=== PATIENT | male | born 1945 | race Caucasian/White ===

== ENCOUNTER 2018-07-08 07:47 | Day surgery (SDC) | payer MEDICARE, OTHER ==
[2018-07-08] VITALS (13 sets, daily range): BP systolic 102–143; BP diastolic 64–85
[~2018-07-08] VITALS: Ht 190.5 cm; Wt 112.4 kg
[2018-07-08] MEDS ORDERED: nitroGLYCERIN 0.4mg SUBLingual tab SL PRN (08:20)
[2018-07-08] MEDS ORDERED: LORazepam 0.5 MG tablet PO PRN (08:20)
[2018-07-08] MEDS ORDERED: normal saline 1000ml 1,000 ML IV SCH (08:20)
[2018-07-08] MEDS ORDERED: diphenhydrAMINE 25mg capsule PO PRN (08:20)
[2018-07-08] MEDS ORDERED: GLIM1TAB46 PO (08:30)
[2018-07-08] MEDS ORDERED: HYDR25TA4 PO (08:30)
[2018-07-08] MEDS ORDERED: LOSA50TA21 PO (08:30)
[2018-07-08] MEDS ORDERED: ATOR20TA PO (08:30)
[2018-07-08] MEDS ORDERED: AMLO-54 PO (08:30)
[2018-07-08] MEDS ORDERED: METF-437 PO (08:30)
[2018-07-08] MEDS ORDERED: ATEN50TA PO (08:30)
[2018-07-08] MEDS ORDERED: CALC-729 PO (08:30)
[2018-07-08] MEDS ORDERED: FINA5TAB11 PO (08:30)
[2018-07-08] MEDS ORDERED: iohexol 350MG/ML 100ml bottle IV ONE (08:58)
[2018-07-08] MEDS ORDERED: LIDOcaine 1% (10mg/ml)w/preservative injection 20ml MDV ONE (08:58)
[2018-07-08] MEDS ORDERED: iohexol 350 MG/ML 50ML vial IV ONE ×2 (08:58→09:49)
[2018-07-08] MEDS ORDERED: fentaNYL/PF 50MCG/1 ML 2ML syringe ONE (09:17)
[2018-07-08] MEDS ORDERED: midazolam 2 mg/2 ml injection ONE (09:17)
[2018-07-08] MEDS ORDERED: proCHLORperazine 10 MG/2 ml inj IV PRN (11:35)
[2018-07-08] MEDS ORDERED: ondansetron/PF 4mg/2ml inj IV PRN (11:35)
[2018-07-08] MEDS ORDERED: OXAZEpam 15mg capsule PO PRN (11:35)
== END 2018-07-08 18:05 | disposition home or self-care (01) ==
LOC: SSTAY O 07:47
PROVIDERS: ATTEND Internal Medicine Cardiovascular Disease
DX: I25.10 Atherosclerotic heart disease of native coronary artery without angina pectoris (principal); J98.4 Other disorders of lung; G89.29 Other chronic pain; E11.9 Type 2 diabetes mellitus without complications; N40.0 Benign prostatic hyperplasia without lower urinary tract symptoms; I10 Essential (primary) hypertension; I44.0 Atrioventricular block, first degree; I25.2 Old myocardial infarction; E78.5 Hyperlipidemia, unspecified; Z98.41 Cataract extraction status, right eye; Z98.42 Cataract extraction status, left eye; Z79.84 Long term (current) use of oral hypoglycemic drugs; Z88.2 Allergy status to sulfonamides; Z79.899 Other long term (current) drug therapy; Z98.890 Other specified postprocedural states
CPT/HCPCS: 71250; 82948; 93005; 93458; 99152; 99153; A6257; C1760; J1644; J2001; J2250; J3010; J7030; Q0163; Q9967; A4620; C1769

== ENCOUNTER 2018-07-16 12:51 | Outpatient (CLI) | payer MEDICARE, OTHER ==
[~2018-07-16 12:51] MED LIST: AMLO-317 PO; ATEN50TA PO; ATOR20TA PO; CALC-729 PO; FINA5TAB11 PO; GLIM1TAB46 PO; HYDR25TA4 PO; LOSA50TA64 PO; METF-437 PO
== END 2018-07-16 23:59 | disposition home or self-care (01) ==
LOC: RAD 12:51
PROVIDERS: ATTEND Internal Medicine Cardiovascular Disease
DX: E04.1 Nontoxic single thyroid nodule (principal); I10 Essential (primary) hypertension; E11.9 Type 2 diabetes mellitus without complications
CPT/HCPCS: 76536

== ENCOUNTER 2018-07-23 05:17 | Inpatient (IN) | payer MEDICARE, OTHER ==
[2018-07-22 14:15] LABS: BASOPHILS % (AUTO) 0.3 % (0-1); EOSINOPHILS # (AUTO) 0.1 X10'3 (0-0.9); EOSINOPHILS % (AUTO) 1.1 % (0-6); LYMPHOCYTES # (AUTO) 1.3 X10'3 (1.1-4.8); LYMPHOCYTES % (AUTO) 14.2 % (21-51); MEAN CORPUSCULAR HEMOGLOBIN 31.8 PG (27.0-31.0); MEAN CORPUSCULAR HGB CONC 33.3 % (33.0-36.5); MEAN CORPUSCULAR VOLUME 95.4 FL (78-98); MEAN PLATELET VOLUME 8.6 FL (7.4-10.4); MONOCYTES # (AUTO) 0.9 X10'3 (0-0.9); MONOCYTES % (AUTO) 9.4 % (2-12); PRE OP PLATELET COUNT 250 X10'3 (140-440); RED CELL DISTRIBUTION WIDTH 14.1 % (11.5-14.5)
[2018-07-22 14:16] LABS: CLARITY,URINE CLEAR (Clear); COLOR,URINE YELLOW (Yellow); GLUCOSE, URINE 100 mg/dl (Neg); KETONES,URINE NEGATIVE (Neg); LEUKOCYTE ESTERASE ,URINE NEGATIVE (Neg); NITRITES, URINE NEGATIVE (Neg); OCCULT BLOOD,URINE TRACE-INTACT (Neg); PROTEIN,URINE 100 mg/dl (Neg); UROBILINOGEN,URINE 0.2 E.U/dL (0.2-1.0)
[2018-07-22 14:26] LABS: UA COLLECTION TYPE CLN CATCH MIDSTREAM
[2018-07-22 14:26] LABS: HEMOGLOBIN A1C 6.6 % (4.5-6.2)
[2018-07-22 14:29] LABS: BACTERIA,URINE NONE SEEN /HPF (Neg); MUCUS STRANDS NONE SEEN /LPF (Neg); RBC,URINE 0-2 /HPF (0-2); SQUAMOUS EPITHELIAL CELL,UR FEW /LPF (FEW); TRANSITIONAL EPI CELLS,URINE FEW /HPF; WBC,URINE NONE SEEN /HPF (0-4)
[2018-07-22 14:51] LABS: ALBUMIN 3.6 G/DL (3.4-5.0); ALKALINE PHOSPHATASE 98 IU/L (46-116); BLOOD UREA NITROGEN 31 MG/DL (7-18); BUN/CREATININE RATIO 24.2 (5.4-32.0); CALCIUM 9.4 MG/DL (8.5-10.1); CHLORIDE 102 MMOL/L (99-107); CREATININE 1.28 MG/DL (0.60-1.10); PRE OP ALT 24 U/L (30-65); PRE OP ANION GAP 13 (8-16); PRE OP AST 14 U/L (10-37); PRE OP BILIRUB, TOTAL 0.5 MG/DL (0.0-1.0); PRE OP GLUCOSE 139 MG/DL (70-104); PRE OP POTASSIUM 3.6 MMOL/L (3.4-5.1); PRE OP SODIUM 142 MMOL/L (135-145); TOTAL CARBON DIOXIDE 27.4 MMOL/L (24-32); TOTAL PROTEIN 7.3 G/DL (6.4-8.2); eGFR 55 ML/MIN
[~2018-07-23] VITALS: Ht 190.5 cm; Wt 112.1 kg
[2018-07-23] VITALS (17 sets, daily range): BP systolic 112–156; BP diastolic 45–88
[~2018-07-23 05:17] MED LIST changes: +ACET-2319 PO; +ACET-812 PO; +ringers solution, lacted 1,000 ML IV SCH
[2018-07-23] MEDS ORDERED: vancomycin inj 1,500 MG in normal saline 300ml IV soln IV ONE (05:30)
[2018-07-23] MEDS: metoprolol tartrate 12.5mg (1/2 tablet) PO ONE ×2 (05:30→06:01)
[2018-07-23] MEDS ORDERED: famotidine 20mg tablet PO ONE (05:30)
[2018-07-23] MEDS ORDERED: cefazolin/dext.iso 2gm/50ml 50 ML IV ONE (05:30)
[2018-07-23] MEDS ORDERED: mupirocin 2% nasal ointment 1gm UD NS ONE (05:30)
[2018-07-23] MEDS ORDERED: LORazepam 2 mg/ml vial IV PRN (05:30)
[2018-07-23] MEDS ORDERED: DOCUMENT DATE & TIME OF BETA-BLOCKER PO ONE (05:30)
[2018-07-23] MEDS ORDERED: LIDOcaine 1% (10mg/ml) 2ml vial ONE (05:45)
--- NOTE | 2018-07-23 06:30 | NUR ---
PT TOOK HOME BETA [facility]LEX[facility] AT 0400. DR VASQUEZ STATES TO HOLD METOPROLOL DOSE ORDERED FOR THIS AM.
[2018-07-23] MEDS ORDERED: MIDAZolam 1mg/ml 10ml vial ONE (06:47)
[2018-07-23] MEDS ORDERED: rocuronium 10mg/ml inj IV ONE ×3 (06:48→06:54)
[2018-07-23] MEDS ORDERED: propofol inj 20 ML IV ONE (06:48)
[2018-07-23] MEDS ORDERED: SUFENTANIL CITRATE 50 MCG/ML 2ml ampule IV ONE (06:48)
[2018-07-23] MEDS ORDERED: sevoflurane 250ml liquid IH ONE (06:54)
[2018-07-23] MEDS ORDERED: niCARdipine 2.5mg/ml inj IV ONE (06:54)
[2018-07-23] MEDS ORDERED: propofol (Diprivan) 10mg/ml 100ml bottle IV ONE (06:54)
[2018-07-23 07:51] LABS: ABG BASE EXCESS 0.9 mmol/L (-2.0-3.0); ABG HCO3 26.1 mmol/L (22.0-26.0); ABG OXYGEN SATURATION 98.5 % (95-98); ABG PCO2 43.8 mmHg (35.0-45.0); ABG PH 7.393 (7.350-7.450); ABG PO2 135.4 mmHg (60.0-100.0); CL (ABG) 106 mmol/L (99-107); FCOHb 0.7 % (0.5-1.5); FO2Hb 97.8 % (94-100); GLUCOSE (ABG) 156 mg/dl (70-105); IONIZED CA (ABG) 1.17 mmol/L (1.03-1.32); K (ABG) 3.7 mmol/L (3.3-5.1); NA (ABG) 137 mmol/L (135-145); TOTAL HEMOGLOBIN 11.8 G/dl (14.0-18.0)
[2018-07-23] MEDS ORDERED: papaverine 30 mg/ml 2ml inj. IA ONE (08:12)
[2018-07-23] MEDS ORDERED: heparin 10,000 units/1 ML INJ IR ONE (08:36)
[2018-07-23 08:46] LABS: ABG BASE EXCESS VENOUS 1.1 mmol/L; ABG HCO3 VENOUS 27.6 mmol/L; ABG PCO2 VENOUS 52.1 mmHg; ABG PO2 VENOUS 46.7 mmHg; CL (ABG) 105 mmol/L (99-107); FCOHb VENOUS 0.9 %; FHHb VENOUS 17.7 %; FMetHb VENOUS 0.1 %; FO2Hb VENOUS 81.3 %; GLUCOSE (ABG) 155 mg/dl (70-105); IONIZED CA (ABG) 1.16 mmol/L (1.03-1.32); K (ABG) 3.7 mmol/L (3.3-5.1); NA (ABG) 138 mmol/L (135-145)
[2018-07-23 09:21] LABS: ABG BASE EXCESS 0.9 mmol/L (-2.0-3.0); ABG HCO3 26.3 mmol/L (22.0-26.0); ABG OXYGEN SATURATION 99.1 % (95-98); ABG PCO2 45.1 mmHg (35.0-45.0); ABG PH 7.383 (7.350-7.450); ABG PO2 528.2 mmHg (60.0-100.0); CL (ABG) 103 mmol/L (99-107); FCOHb 0.3 % (0.5-1.5); FMetHb 0.3 % (0.3-1.12); FO2Hb 98.5 % (94-100); GLUCOSE (ABG) 152 mg/dl (70-105); IONIZED CA (ABG) 1.06 mmol/L (1.03-1.32); K (ABG) 4.4 mmol/L (3.3-5.1); NA (ABG) 135 mmol/L (135-145); TOTAL HEMOGLOBIN 10.4 G/dl (14.0-18.0)
[2018-07-23 09:25] LABS: ABG BASE EXCESS VENOUS 0.1 mmol/L; ABG HCO3 VENOUS 25.8 mmol/L; ABG PCO2 VENOUS 46.2 mmHg; ABG PO2 VENOUS 54.6 mmHg; CL (ABG) 103 mmol/L (99-107); FCOHb VENOUS 0.5 %; FHHb VENOUS 11.7 %; FMetHb VENOUS 0.3 %; FO2Hb VENOUS 87.5 %; GLUCOSE (ABG) 145 mg/dl (70-105); IONIZED CA (ABG) 1.05 mmol/L (1.03-1.32); K (ABG) 4.2 mmol/L (3.3-5.1); NA (ABG) 136 mmol/L (135-145); TOTAL HEMOGLOBIN 10.2 G/dl (14.0-18.0)
[2018-07-23 09:41] LABS: ABG HCO3 26.2 mmol/L (22.0-26.0); ABG OXYGEN SATURATION 99.1 % (95-98); ABG PCO2 44.6 mmHg (35.0-45.0); ABG PH 7.387 (7.350-7.450); ABG PO2 391.5 mmHg (60.0-100.0); CL (ABG) 104 mmol/L (99-107); FCOHb 0.1 % (0.5-1.5); FMetHb 0.2 % (0.3-1.12); FO2Hb 98.8 % (94-100); GLUCOSE (ABG) 144 mg/dl (70-105); IONIZED CA (ABG) 1.11 mmol/L (1.03-1.32); K (ABG) 4.2 mmol/L (3.3-5.1); NA (ABG) 137 mmol/L (135-145); TOTAL HEMOGLOBIN 10.5 G/dl (14.0-18.0)
[2018-07-23 10:11] LABS: ABG BASE EXCESS 1.5 mmol/L (-2.0-3.0); ABG HCO3 26.8 mmol/L (22.0-26.0); ABG PCO2 45.2 mmHg (35.0-45.0); ABG PH 7.391 (7.350-7.450); ABG PO2 385.6 mmHg (60.0-100.0); CL (ABG) 105 mmol/L (99-107); FCOHb 0.3 % (0.5-1.5); FMetHb 0.1 % (0.3-1.12); FO2Hb 98.6 % (94-100); GLUCOSE (ABG) 148 mg/dl (70-105); K (ABG) 4.4 mmol/L (3.3-5.1); NA (ABG) 138 mmol/L (135-145); TOTAL HEMOGLOBIN 10.3 G/dl (14.0-18.0)
[2018-07-23 10:41] LABS: ABG BASE EXCESS 1.8 mmol/L (-2.0-3.0); ABG HCO3 27.1 mmol/L (22.0-26.0); ABG OXYGEN SATURATION 98.8 % (95-98); ABG PCO2 45.4 mmHg (35.0-45.0); ABG PH 7.393 (7.350-7.450); ABG PO2 308.4 mmHg (60.0-100.0); CL (ABG) 104 mmol/L (99-107); FCOHb 0.3 % (0.5-1.5); FMetHb 0.1 % (0.3-1.12); FO2Hb 98.4 % (94-100); GLUCOSE (ABG) 150 mg/dl (70-105); IONIZED CA (ABG) 1.43 mmol/L (1.03-1.32); K (ABG) 4.7 mmol/L (3.3-5.1); NA (ABG) 136 mmol/L (135-145); TOTAL HEMOGLOBIN 9.8 G/dl (14.0-18.0)
[2018-07-23] MEDS ORDERED: fentaNYL /PF 50mcg/ml 5ml ampule ONE (10:50)
[2018-07-23 11:01] LABS: ABG BASE EXCESS VENOUS 2.2 mmol/L; ABG HCO3 VENOUS 27.7 mmol/L; ABG PCO2 VENOUS 47.6 mmHg; ABG PO2 VENOUS 42.4 mmHg; CL (ABG) 105 mmol/L (99-107); FCOHb VENOUS 0.7 %; FHHb VENOUS 19.6 %; FMetHb VENOUS 0.2 %; FO2Hb VENOUS 79.5 %; GLUCOSE (ABG) 173 mg/dl (70-105); IONIZED CA (ABG) 1.24 mmol/L (1.03-1.32); K (ABG) 4.4 mmol/L (3.3-5.1); NA (ABG) 138 mmol/L (135-145); TOTAL HEMOGLOBIN 10.5 G/dl (14.0-18.0)
[2018-07-23] MEDS ORDERED: sodium phosphate inj. 30 MMOL in dextrose 5%-water 250 ML IV PRN (11:50)
[2018-07-23] MEDS ORDERED: metoclopramide 5 mg/ml inj IV PRN (11:50)
[2018-07-23] MEDS ORDERED: albumin (Human) 5% 250ml 250 ML IV PRN (11:50)
[2018-07-23] MEDS ORDERED: normal saline 250ml IV soln 250 ML IV PRN (11:50)
[2018-07-23] MEDS ORDERED: niCARDipine-NS 40mg/200ml IVPB 200 ML IV PRN (11:50)
[2018-07-23] MEDS ORDERED: ondansetron/PF 4mg/2ml inj IV PRN (11:50)
[2018-07-23] MEDS ORDERED: acetaminophen 325mg tablet PO PRN (11:50)
[2018-07-23] MEDS ORDERED: dextrose 50%-water 50ml dispensing syringe IV PRN (11:50)
[2018-07-23] MEDS ORDERED: magnesium 2GM in 50ml NS 50 ML IV PRN (11:50)
[2018-07-23] MEDS ORDERED: magnesium hydroxide 30ml (MOM) UD suspension PO PRN (11:50)
[2018-07-23] MEDS ORDERED: sodium phosphate inj. 15 MMOL in dextrose 5%-water 150 ML IV PRN (11:50)
[2018-07-23] MEDS ORDERED: nitroGLYCERIN-Tridil 50MG/D5W 250 ML IV PRN (11:50)
[2018-07-23] MEDS ORDERED: potassium Cl 20mEq/100mL bag 100 ML IV PRN ×2 (11:50)
[2018-07-23] MEDS ORDERED: pantoprazole 40 MG vial IV ONE (11:50)
[2018-07-23] MEDS ORDERED: Neutra Phos packet PO PRN (11:50)
[2018-07-23] MEDS ORDERED: insulin regular, human inj. 100 UNITS in normal saline 100ml IV soln 100 ML IV SCH ×2 (11:50)
[2018-07-23] MEDS ORDERED: DOPamine 400mg/D5W 250ml 250 ML IV PRN (11:50)
[2018-07-23] MEDS ORDERED: magnesium 4gm in 100ml NS 100 ML IV PRN (11:50)
[2018-07-23] MEDS ORDERED: morphine 4 MG/ML inj SYRINge IV PRN (11:50)
--- NOTE | 2018-07-23 11:50 | NUR ---
Received to room 2011B, accompanied by MDs and surgical crew. Placed on ventilator, to tactical response group officer, arterial line and PA line pressure monitored. Chest tubes to suction at 20 cm. Garg cath to gravity drainage. Dressings are dry and intact. See assessment record. All vasoactive drugs are infusing via central line.
[2018-07-23 12:35] LABS: ABG BASE EXCESS -1.1 mmol/L (-2.0-3.0); ABG HCO3 23.6 mmol/L (22.0-26.0); ABG OXYGEN SATURATION 97.5 % (95-98); ABG PCO2 (T) 39.5 mmHg (35.0-48.0); ABG PH (T) 7.394 (7.350-7.450); ABG PO2 (T) 117.2 mmHg (83-108); FCOHb 0.3 % (0.5-1.5); FO2Hb 97.2 % (94-100); MINUTE VOLUME 8 L/min; PEEP 5 cm H2O; RESPIRATORY RATE 12 b/min; RESPIRATORY RATE (OBSERVED) 12 b/min; TIDAL VOLUME 730 mL; TOTAL HEMOGLOBIN 11.9 G/dl (14.0-18.0)
[2018-07-23 12:39] LABS: BASOPHILS % (AUTO) 0 % (0-1); EOSINOPHILS # (AUTO) 0.2 X10'3 (0-0.9); EOSINOPHILS % (AUTO) 1.4 % (0-6); HEMATOCRIT 35.3 % (42.0-52.0); HEMOGLOBIN 11.8 g/dl (14.0-17.9); LYMPHOCYTES # (AUTO) 0.7 X10'3 (1.1-4.8); LYMPHOCYTES % (AUTO) 4.8 % (21-51); MEAN CORPUSCULAR HEMOGLOBIN 31.8 PG (27.0-31.0); MEAN CORPUSCULAR HGB CONC 33.3 % (33.0-36.5); MEAN CORPUSCULAR VOLUME 95.2 FL (78-98); MEAN PLATELET VOLUME 8.3 FL (7.4-10.4); MONOCYTES # (AUTO) 0.7 X10'3 (0-0.9); MONOCYTES % (AUTO) 4.7 % (2-12); NEUTROPHILS # (AUTO) 13.8 X10'3 (1.8-7.7); NEUTROPHILS % (AUTO) 89.1 % (42-75); PLATELET COUNT 171 X10'3 (140-440); RED CELL DISTRIBUTION WIDTH 14.1 % (11.5-14.5); WHITE BLOOD COUNT 15.5 X10'3 (4.5-11.0)
[2018-07-23] MEDS: insulin Lispro (HumaLOG) vial - multi-dose SQ SCH ×2 (13:00→18:00)
[2018-07-23] MEDS: insulin regular, human 100 UNIT in normal saline 100ml IV soln 99 ML IV SCH ×8 (13:13→17:16)
[2018-07-23 13:25] LABS: ALANINE AMINOTRANSFERASE 18 U/L (12-78); ALBUMIN 2.9 G/DL (3.4-5.0); ALBUMIN/GLOBULIN RATIO 1.1 (1.1-1.5); ALKALINE PHOSPHATASE 72 IU/L (46-116); ANION GAP 15 (8-16); ASPARTATE AMINO TRANSFERASE 22 U/L (10-37); BILIRUBIN,TOTAL 0.8 MG/DL (0.1-1.0); BLOOD UREA NITROGEN 26 MG/DL (7-18); BUN/CREATININE RATIO 18.8 (5.4-32.0); CALCIUM 8.8 MG/DL (8.5-10.1); CHLORIDE 105 MMOL/L (99-107); CREATININE 1.38 MG/DL (0.60-1.10); GLUCOSE 128 MG/DL (70-104); MAGNESIUM 2.2 MG/DL (1.5-2.4); PHOSPHORUS 1.3 MG/DL (2.3-4.5); POTASSIUM 3.6 MMOL/L (3.5-5.1); SODIUM 145 MMOL/L (135-145); TOTAL CARBON DIOXIDE 25.5 MMOL/L (24-32); TOTAL PROTEIN 5.6 G/DL (6.4-8.2); eGFR 50 ML/MIN
[2018-07-23 13:32] LABS: INR 1.1 INR; PARTIAL THROMBOPLASTIN TIME 25 SECONDS (22-32); PROTHROMBIN TIME 11.1 SECONDS (9.0-12.0)
[2018-07-23] MEDS: sodium chloride 0.45% 1,000 ML IV SCH (13:32)
[2018-07-23] MEDS: morphine 4 MG/ML inj SYRINge IV PRN ×5 (13:39→20:55)
[2018-07-23] MEDS ORDERED: calcium chloride 100 MG/1 ML inj IV ONE (14:00)
[2018-07-23] MEDS ORDERED: heparin 10,000 units/1 ML INJ ONE (14:00)
[2018-07-23] MEDS ORDERED: albumin (human) 25% 100 ML IV solution IV ONE (14:00)
[2018-07-23] MEDS ORDERED: potassium Cl 2 mEq/ml inj IV ONE (14:00)
[2018-07-23] MEDS ORDERED: aminocaproic acid 250 MG/1 ML inj. ONE (14:00)
[2018-07-23] MEDS ORDERED: methylPREDNISolone sod. succ. 500mg inj ONE (14:00)
[2018-07-23] MEDS ORDERED: sodium bicarbonate (8.4%) 1 mEq/ml syringe ONE (14:00)
[2018-07-23] MEDS ORDERED: LIDOcaine 2% (20 mg/ml) 5ml cardiac syringe ONE (14:00)
[2018-07-23] MEDS ORDERED: magnesium 1 GM/2 ML inj ONE (14:00)
[2018-07-23] MEDS ORDERED: phenylephrine 10mg/ml inj. ONE (14:00)
[2018-07-23] MEDS: ceFAZolin 1GM/D5W- ADD-VANTAGE 50 ML IV SCH (15:55)
[2018-07-23] MEDS: potassium Cl 20mEq/100mL bag 100 ML IV PRN ×2 (17:57→19:26)
--- NOTE | 2018-07-23 18:15 | NUR ---
Problems reprioritized. Patient report given, questions answered & plan of care reviewed with oncoming shift.
[2018-07-23 18:24] LABS: BASOPHILS % (AUTO) 0 % (0-1); EOSINOPHILS # (AUTO) 0.2 X10'3 (0-0.9); EOSINOPHILS % (AUTO) 1.5 % (0-6); HEMATOCRIT 33.5 % (42.0-52.0); HEMOGLOBIN 11.2 g/dl (14.0-17.9); LYMPHOCYTES # (AUTO) 0.5 X10'3 (1.1-4.8); LYMPHOCYTES % (AUTO) 3.2 % (21-51); MEAN CORPUSCULAR HEMOGLOBIN 31.8 PG (27.0-31.0); MEAN CORPUSCULAR HGB CONC 33.4 % (33.0-36.5); MEAN CORPUSCULAR VOLUME 95.4 FL (78-98); MEAN PLATELET VOLUME 8.6 FL (7.4-10.4); MONOCYTES # (AUTO) 0.7 X10'3 (0-0.9); MONOCYTES % (AUTO) 4.7 % (2-12); NEUTROPHILS # (AUTO) 12.7 X10'3 (1.8-7.7); NEUTROPHILS % (AUTO) 90.6 % (42-75); PLATELET COUNT 168 X10'3 (140-440); RED BLOOD COUNT 3.51 X10'6 (4.70-6.10); RED CELL DISTRIBUTION WIDTH 13.9 % (11.5-14.5)
[2018-07-23 18:41] LABS: ALBUMIN 3.1 G/DL (3.4-5.0); ANION GAP 13 (8-16); BLOOD UREA NITROGEN 27 MG/DL (7-18); BUN/CREATININE RATIO 18.9 (5.4-32.0); CALCIUM 8.8 MG/DL (8.5-10.1); CHLORIDE 107 MMOL/L (99-107); CREATININE 1.43 MG/DL (0.60-1.10); GLUCOSE 169 MG/DL (70-104); MAGNESIUM 2.1 MG/DL (1.5-2.4); PHOSPHORUS 2.5 MG/DL (2.3-4.5); POTASSIUM 3.4 MMOL/L (3.5-5.1); SODIUM 145 MMOL/L (135-145); TOTAL CARBON DIOXIDE 24.6 MMOL/L (24-32); eGFR 48 ML/MIN
[2018-07-23] MEDS: docusate sod 100mg capsule PO SCH (20:00)
[2018-07-23] MEDS: vancomycin/NS 1 GM ADD-VANTAGE 250 ML IV SCH (20:54)
[2018-07-23] MEDS: mupirocin 2% nasal ointment 1gm UD NS SCH (20:55)
--- NOTE | 2018-07-23 22:23 | NUR ---
1830..Patient in room CICU 2010. I have received report from Courtney MUNGUIA and had the opportunity to ask questions and assume patient care.
--- NOTE | 2018-07-23 22:23 | NUR ---
1899..Medicated with morphine,as per orders for complaints of pain, with good effect.
--- NOTE | 2018-07-23 22:35 | NUR ---
1999..Assessment as noted, weaning vent as tolerated.
[2018-07-24] VITALS (24 sets, daily range): BP systolic 96–148; BP diastolic 40–75
[2018-07-24] MEDS: ceFAZolin 1GM/D5W- ADD-VANTAGE 50 ML IV SCH ×4 (00:08→23:59)
[2018-07-24] MEDS: morphine 4 MG/ML inj SYRINge IV PRN (00:12)
--- NOTE | 2018-07-24 00:19 | NUR ---
0015..Again failed SBT x2 attempts, complaining of pain, medicated with morphine per orders, with good effect. Will try SBT again later.
--- NOTE | 2018-07-24 01:34 | NUR ---
130..Again, attempting SBT. Has already failedx1 attempt.
[2018-07-24 02:32] LABS: BASOPHILS % (AUTO) 0 % (0-1); EOSINOPHILS # (AUTO) 0.1 X10'3 (0-0.9); EOSINOPHILS % (AUTO) 0.9 % (0-6); HEMATOCRIT 32.3 % (42.0-52.0); HEMOGLOBIN 10.9 g/dl (14.0-17.9); LYMPHOCYTES # (AUTO) 0.6 X10'3 (1.1-4.8); LYMPHOCYTES % (AUTO) 3.7 % (21-51); MEAN CORPUSCULAR HEMOGLOBIN 32.1 PG (27.0-31.0); MEAN CORPUSCULAR HGB CONC 33.8 % (33.0-36.5); MEAN CORPUSCULAR VOLUME 94.9 FL (78-98); MEAN PLATELET VOLUME 8.7 FL (7.4-10.4); MONOCYTES % (AUTO) 6.7 % (2-12); NEUTROPHILS # (AUTO) 13.5 X10'3 (1.8-7.7); NEUTROPHILS % (AUTO) 88.7 % (42-75); PLATELET COUNT 171 X10'3 (140-440); RED BLOOD COUNT 3.41 X10'6 (4.70-6.10); WHITE BLOOD COUNT 15.2 X10'3 (4.5-11.0)
[2018-07-24 02:34] LABS: PARTIAL THROMBOPLASTIN TIME 25 SECONDS (22-32); PROTHROMBIN TIME 10.4 SECONDS (9.0-12.0)
[2018-07-24 02:35] LABS: ALANINE AMINOTRANSFERASE 20 U/L (12-78); ALBUMIN/GLOBULIN RATIO 1.2 (1.1-1.5); ALKALINE PHOSPHATASE 60 IU/L (46-116); ANION GAP 11 (8-16); ASPARTATE AMINO TRANSFERASE 30 U/L (10-37); BILIRUBIN,TOTAL 0.4 MG/DL (0.1-1.0); BLOOD UREA NITROGEN 29 MG/DL (7-18); BUN/CREATININE RATIO 21.3 (5.4-32.0); CALCIUM 8.4 MG/DL (8.5-10.1); CHLORIDE 108 MMOL/L (99-107); CREATININE 1.36 MG/DL (0.60-1.10); GLUCOSE 131 MG/DL (70-104); MAGNESIUM 2.6 MG/DL (1.5-2.4); PHOSPHORUS 3.7 MG/DL (2.3-4.5); POTASSIUM 3.7 MMOL/L (3.5-5.1); SODIUM 144 MMOL/L (135-145); TOTAL CARBON DIOXIDE 24.9 MMOL/L (24-32); TOTAL PROTEIN 5.6 G/DL (6.4-8.2); eGFR 51 ML/MIN
[2018-07-24] MEDS: potassium Cl 20mEq/100mL bag 100 ML IV PRN ×2 (03:00→04:06)
--- NOTE | 2018-07-24 03:15 | NUR ---
0315.. Lasted 10 minutes with cpap, very angry when awake, but fails cpap trial when asleep.
[2018-07-24 03:55] LABS: ABG BASE EXCESS -1.5 mmol/L (-2.0-3.0); ABG HCO3 19.5 mmol/L (22.0-26.0); ABG OXYGEN SATURATION 96.9 % (95-98); ABG PCO2 (T) 22.6 mmHg (35.0-48.0); ABG PH (T) 7.554 (7.350-7.450); ABG PO2 (T) 81.3 mmHg (83-108); FCOHb 0.2 % (0.5-1.5); FMetHb 0.3 % (0.3-1.12); FO2Hb 96.4 % (94-100); MINUTE VOLUME 16 L/min; PATIENT TEMPERATURE 36.8; PEEP 5 cm H2O; RESPIRATORY RATE (OBSERVED) 21 b/min; TIDAL VOLUME 659 mL; TOTAL HEMOGLOBIN 10.9 G/dl (14.0-18.0)
[2018-07-24] MEDS: HYDROcodone/acetaminophen 10/325mg tab PO PRN ×7 (04:07→23:59)
--- NOTE | 2018-07-24 04:30 | NUR ---
0400..Finally passed SBT and weaning parameters, extubated to 4l nasal cannula, no wheezing or stridor noted.
--- NOTE | 2018-07-24 04:31 | NUR ---
0415..Per orders medicated with norco for complaints of incisional pain, resp easy and nonlabored.
--- NOTE | 2018-07-24 06:06 | NUR ---
0500..Pain meds appear effective, states no pain at this time.
--- NOTE | 2018-07-24 06:21 | NUR ---
0620..Problems reprioritized. Patient report given, questions answered & plan of care reviewed with Courtney MUNGUIA.
[2018-07-24] MEDS: atorvastatin 10mg tablet PO SCH (08:24)
[2018-07-24] MEDS: mupirocin 2% nasal ointment 1gm UD NS SCH ×2 (08:24→20:20)
[2018-07-24] MEDS: metoprolol tartrate 12.5mg (1/2 tablet) PO SCH ×2 (08:24→20:21)
[2018-07-24] MEDS: docusate sod 100mg capsule PO SCH ×2 (08:24→20:20)
[2018-07-24] MEDS: aspirin 325mg tablet, delayed-release (Ecotrin) PO SCH (08:24)
[2018-07-24] MEDS: vancomycin/NS 1 GM ADD-VANTAGE 250 ML IV SCH ×2 (08:24→19:58)
[2018-07-24] MEDS: finasteride 5mg tablet PO SCH (08:24)
[2018-07-24] MEDS: insulin Lispro (HumaLOG) vial - multi-dose SQ SCH ×3 (08:37→20:26)
[2018-07-24] MEDS ORDERED: MESSAGE TO PHARMACY PO ONE (12:10)
[2018-07-24] MEDS ORDERED: dextrose ORAL solution 15 GM/59 ML bottle PO PRN ×2 (12:10)
[2018-07-24] MEDS ORDERED: glucagon, human recombinant 1mg kit SUBCUT PRN (12:10)
[2018-07-24] MEDS ORDERED: dextrose 50%-water 50ml dispensing syringe IV PRN ×2 (12:10)
--- NOTE | 2018-07-24 18:17 | NUR ---
Problems reprioritized. Patient report given, questions answered & plan of care reviewed with oncoming shift.
[2018-07-24] MEDS: insulin glargine (Lantus) pen - multi-dose SQ SCH (20:23)
[2018-07-25] VITALS (20 sets, daily range): BP systolic 104–166; BP diastolic 61–83
[2018-07-25 02:53] LABS: BASOPHILS # (AUTO) 0.1 X10'3 (0-0.2); BASOPHILS % (AUTO) 0.4 % (0-1); EOSINOPHILS % (AUTO) 0 % (0-6); HEMATOCRIT 32.7 % (42.0-52.0); LYMPHOCYTES # (AUTO) 0.7 X10'3 (1.1-4.8); LYMPHOCYTES % (AUTO) 3.4 % (21-51); MEAN CORPUSCULAR HEMOGLOBIN 32.8 PG (27.0-31.0); MEAN CORPUSCULAR HGB CONC 33.7 % (33.0-36.5); MEAN CORPUSCULAR VOLUME 97.4 FL (78-98); MEAN PLATELET VOLUME 9.3 FL (7.4-10.4); MONOCYTES # (AUTO) 1.5 X10'3 (0-0.9); MONOCYTES % (AUTO) 7.6 % (2-12); NEUTROPHILS # (AUTO) 17.3 X10'3 (1.8-7.7); NEUTROPHILS % (AUTO) 88.6 % (42-75); PLATELET COUNT 175 X10'3 (140-440); RED BLOOD COUNT 3.36 X10'6 (4.70-6.10); RED CELL DISTRIBUTION WIDTH 13.5 % (11.5-14.5); WHITE BLOOD COUNT 19.6 X10'3 (4.5-11.0)
[2018-07-25 04:17] LABS: ALBUMIN 2.9 G/DL (3.4-5.0); ANION GAP 10 (8-16); BLOOD UREA NITROGEN 34 MG/DL (7-18); BUN/CREATININE RATIO 27.4 (5.4-32.0); CALCIUM 7.8 MG/DL (8.5-10.1); CHLORIDE 105 MMOL/L (99-107); CREATININE 1.24 MG/DL (0.60-1.10); GLUCOSE 201 MG/DL (70-104); MAGNESIUM 2.3 MG/DL (1.5-2.4); PHOSPHORUS 3.2 MG/DL (2.3-4.5); POTASSIUM 4.1 MMOL/L (3.5-5.1); SODIUM 141 MMOL/L (135-145); TOTAL CARBON DIOXIDE 25.9 MMOL/L (24-32); eGFR 57 ML/MIN
[2018-07-25] MEDS: atorvastatin 10mg tablet PO SCH (07:30)
[2018-07-25] MEDS: mupirocin 2% nasal ointment 1gm UD NS SCH (07:30)
[2018-07-25] MEDS: aspirin 325mg tablet, delayed-release (Ecotrin) PO SCH (07:30)
[2018-07-25] MEDS: pantoprazole 40mg Tablet.DR PO SCH (07:30)
[2018-07-25] MEDS: docusate sod 100mg capsule PO SCH ×2 (07:30→20:16)
[2018-07-25] MEDS: metoprolol tartrate 12.5mg (1/2 tablet) PO SCH (07:30)
[2018-07-25] MEDS: finasteride 5mg tablet PO SCH (07:30)
--- NOTE | 2018-07-25 07:30 | NUR ---
ONE KIRAN 10 GIVEN THIS MORNING @0730, ALONG WITH OTHER MORNING MEDICATIONS. Addendum: 07/25/18 at 1627 by Porsha Bran RN SCANNER BROKEN;
[2018-07-25] MEDS: insulin Lispro (HumaLOG) vial - multi-dose SQ SCH ×2 (09:10→14:47)
[2018-07-25] MEDS ORDERED: furosemide 40mg/4ml inj IV ONE (09:25)
--- NOTE | 2018-07-25 09:41 | NUR ---
ANDERSON REMOVED, NO COMPLICATIONS. 400 CC OUTPUT.
[2018-07-25] MEDS: sodium chloride 0.45% 1,000 ML IV SCH (11:56)
[2018-07-25] MEDS: HYDROcodone/acetaminophen 10/325mg tab PO PRN ×3 (11:57→23:18)
--- NOTE | 2018-07-25 13:12 | NUR ---
Pt seen by VIVIAN for written/verbal high protein ed. VIVIAN reviewed high protein needs for wound healing, immune strength, high protein foods, and protein supplementation options. VIVIAN contact information provided in case of further questions. Agrees to Ensure high protein TIDWM; VIVIAN d/w dietary. Addendum: 07/25/18 at [address] Amended: Links added.
--- NOTE | 2018-07-25 16:14 | NUR ---
CV LINE REMOVED FROM RIGHT NECK. CANNULA INTACT, NO COMPLICATIONS. NEW 20G PIV IN RIGHT HAND INITIATED.
--- NOTE | 2018-07-25 16:28 | NUR ---
Patient in room CICU 2010. I have received report from Porsha MUNGUIA and had the opportunity to ask questions and assume patient care.
--- NOTE | 2018-07-25 17:00 | NUR ---
PT TRANSFERRED VIA WHEEL CHAIR TO ACCE UNIT ROOM 316. PATIENTS MEDICATIONS, CHART, AND BELONGINGS TRANSFERRED.
--- NOTE | 2018-07-25 18:30 | NUR ---
Problems reprioritized. Patient report given, questions answered & plan of care reviewed with Enrrique MUNGUIA.
[2018-07-25] MEDS: atenolol 25mg tablet PO SCH (20:16)
[2018-07-25] MEDS: insulin glargine (Lantus) pen - multi-dose SQ SCH (20:18)
[2018-07-26 03:00] VITALS: BP 144/75
--- NOTE | 2018-07-26 05:00 | NUR ---
Pt continues to be non-compliant with sternal precautions throughout the shift. Assisted patient multiple times with transfers and each time he has been instructed to "hold the heart pillow to your chest- the staff will assist you to standing and you are to only use your legs for leverage". despite this, patient continues to hold the pillow with one hand and use the other to attempt to push off of the bed. The transfer has to be stopped and staff has to physically hold his hands on his heart pillow to keep him from using his arms to push himself off the bed. During in-bed care, the patient is again instructed to clasp his hands together with the heart pillow, but mid position change he lets go and attempts to grab the bed rail to pull himself. In-depth education has been provided multiple times to both the patient, his and family members present in the room and have included the importance of maintaining sternal precautions and the risks including dehiscence of the wound and potential failure or disruption of the graft sites, potential for infection and possibly even resulting in if he is not complaint with his care. Patient and both stated understanding.
[2018-07-26 06:00] VITALS: BP 151/98
--- NOTE | 2018-07-26 06:39 | NUR ---
Problems reprioritized. Patient report given, questions answered & plan of care reviewed with Ayde RN.
[2018-07-26 06:57] LABS: BASOPHILS # (AUTO) 0.1 X10'3 (0-0.2); BASOPHILS % (AUTO) 0.9 % (0-1); EOSINOPHILS % (AUTO) 0.1 % (0-6); HEMATOCRIT 32.7 % (42.0-52.0); LYMPHOCYTES # (AUTO) 0.9 X10'3 (1.1-4.8); LYMPHOCYTES % (AUTO) 6.7 % (21-51); MEAN CORPUSCULAR HEMOGLOBIN 32.6 PG (27.0-31.0); MEAN CORPUSCULAR HGB CONC 33.5 % (33.0-36.5); MEAN CORPUSCULAR VOLUME 97.2 FL (78-98); MEAN PLATELET VOLUME 9.2 FL (7.4-10.4); MONOCYTES # (AUTO) 1.3 X10'3 (0-0.9); MONOCYTES % (AUTO) 10.1 % (2-12); NEUTROPHILS # (AUTO) 10.7 X10'3 (1.8-7.7); NEUTROPHILS % (AUTO) 82.2 % (42-75); PLATELET COUNT 152 X10'3 (140-440); RED BLOOD COUNT 3.37 X10'6 (4.70-6.10); RED CELL DISTRIBUTION WIDTH 13.4 % (11.5-14.5)
[2018-07-26 07:15] LABS: ALBUMIN 2.7 G/DL (3.4-5.0); ANION GAP 8 (8-16); BLOOD UREA NITROGEN 32 MG/DL (7-18); BUN/CREATININE RATIO 25.6 (5.4-32.0); CALCIUM 7.8 MG/DL (8.5-10.1); CHLORIDE 105 MMOL/L (99-107); CREATININE 1.25 MG/DL (0.60-1.10); GLUCOSE 208 MG/DL (70-104); MAGNESIUM 2.3 MG/DL (1.5-2.4); PHOSPHORUS 2.3 MG/DL (2.3-4.5); SODIUM 142 MMOL/L (135-145); TOTAL CARBON DIOXIDE 29.1 MMOL/L (24-32); eGFR 56 ML/MIN
[2018-07-26] MEDS: docusate sod 100mg capsule PO SCH ×2 (07:26→20:45)
[2018-07-26] MEDS: aspirin 81mg tablet.DR PO SCH (07:26)
[2018-07-26] MEDS: atorvastatin 10mg tablet PO SCH (07:27)
[2018-07-26] MEDS: HYDROchlorothiazide 25mg tablet PO SCH (07:27)
[2018-07-26] MEDS: pantoprazole 40mg Tablet.DR PO SCH (07:28)
[2018-07-26] MEDS: finasteride 5mg tablet PO SCH (07:38)
[2018-07-26] MEDS: HYDROcodone/acetaminophen 10/325mg tab PO PRN ×2 (07:38→13:33)
[2018-07-26] MEDS: atenolol 25mg tablet PO SCH ×2 (07:47→21:18)
[2018-07-26] MEDS ORDERED: magnesium citrate 296ml oral solution PO ONE (09:20)
[2018-07-26] MEDS: insulin Lispro (HumaLOG) vial - multi-dose SQ SCH ×3 (09:23→18:51)
[2018-07-26 11:00] VITALS: BP 135/68
[2018-07-26 15:00] VITALS: BP 148/67
--- NOTE | 2018-07-26 18:10 | NUR ---
Patient in room MED 316. I have received report from Pat RN and had the opportunity to ask questions and assume patient care. at bedside, pt resting comfortably, in no apparent distress or pain at this time. will continue to monitor.
--- NOTE | 2018-07-26 18:30 | NUR ---
Have received report from Day civil celebrant that patient continues to be non-complaint with maintaining sternal precautions. I have again, at this time, educated patient on the importance of maintaining sternal precautions and will continue to do so throughout the shift.
[2018-07-26 19:00] VITALS: BP 103/70
[2018-07-26] MEDS: insulin glargine (Lantus) pen - multi-dose SQ SCH (20:44)
[2018-07-26 23:00] VITALS: BP 134/65
[2018-07-26] MEDS: diphenhydrAMINE 25mg capsule PO SCH (23:20)
[2018-07-27 03:00] VITALS: BP 160/74
--- NOTE | 2018-07-27 06:00 | NUR ---
Patient in room MED 316. I have received report from Di MUNGUIA and had the opportunity to ask questions and assume patient care.
[2018-07-27 06:58] LABS: ALBUMIN 2.8 G/DL (3.4-5.0); ANION GAP 8 (8-16); BLOOD UREA NITROGEN 35 MG/DL (7-18); BUN/CREATININE RATIO 30.4 (5.4-32.0); CHLORIDE 105 MMOL/L (99-107); CREATININE 1.15 MG/DL (0.60-1.10); GLUCOSE 143 MG/DL (70-104); MAGNESIUM 2.6 MG/DL (1.5-2.4); PHOSPHORUS 2.5 MG/DL (2.3-4.5); POTASSIUM 3.6 MMOL/L (3.5-5.1); SODIUM 142 MMOL/L (135-145); TOTAL CARBON DIOXIDE 29.1 MMOL/L (24-32); eGFR 62 ML/MIN
[2018-07-27 07:00] VITALS: BP 133/60
[2018-07-27 07:01] LABS: BASOPHILS # (AUTO) 0.1 X10'3 (0-0.2); EOSINOPHILS % (AUTO) 0.3 % (0-6); HEMATOCRIT 35.5 % (42.0-52.0); HEMOGLOBIN 11.9 g/dl (14.0-17.9); LYMPHOCYTES # (AUTO) 1.3 X10'3 (1.1-4.8); LYMPHOCYTES % (AUTO) 11.6 % (21-51); MEAN CORPUSCULAR HEMOGLOBIN 32.5 PG (27.0-31.0); MEAN CORPUSCULAR HGB CONC 33.4 % (33.0-36.5); MEAN CORPUSCULAR VOLUME 97.2 FL (78-98); MEAN PLATELET VOLUME 9.1 FL (7.4-10.4); MONOCYTES % (AUTO) 9.5 % (2-12); NEUTROPHILS # (AUTO) 8.6 X10'3 (1.8-7.7); NEUTROPHILS % (AUTO) 77.6 % (42-75); PLATELET COUNT 185 X10'3 (140-440); RED BLOOD COUNT 3.66 X10'6 (4.70-6.10); RED CELL DISTRIBUTION WIDTH 13.4 % (11.5-14.5)
[2018-07-27 07:59] LABS: ABG BASE EXCESS 2.7 mmol/L (-2.0-3.0); ABG HCO3 26.8 mmol/L (22.0-26.0); ABG OXYGEN SATURATION 96.1 % (95-98); ABG PCO2 (T) 39.2 mmHg (35.0-48.0); ABG PH (T) 7.452 (7.350-7.450); ABG PO2 (T) 83.2 mmHg (83-108); ALLEN'S TEST Positive; FCOHb 0.3 % (0.5-1.5); FMetHb 0.3 % (0.3-1.12); FO2Hb 95.5 % (94-100); TOTAL HEMOGLOBIN 14.6 G/dl (14.0-18.0)
[2018-07-27] MEDS: lactose-reduced food (Ensure High Protein) 237ml bottle PO SCH ×3 (08:00→18:00)
[2018-07-27] MEDS: aspirin 81mg tablet.DR PO SCH (08:23)
[2018-07-27] MEDS: pantoprazole 40mg Tablet.DR PO SCH (08:23)
[2018-07-27] MEDS: atorvastatin 10mg tablet PO SCH (08:23)
[2018-07-27] MEDS: HYDROchlorothiazide 25mg tablet PO SCH (08:23)
[2018-07-27] MEDS: finasteride 5mg tablet PO SCH (08:24)
[2018-07-27] MEDS: docusate sod 100mg capsule PO SCH ×2 (08:24→20:36)
[2018-07-27] MEDS: atenolol 25mg tablet PO SCH ×2 (08:24→20:38)
[2018-07-27] MEDS: insulin Lispro (HumaLOG) vial - multi-dose SQ SCH ×3 (08:27→19:06)
[2018-07-27 08:31] LABS: ACT @ 1.70 U 289 SEC (193-297); ACT @ 2.84 U 414 SEC (260-420); BASELINE ACT 152 SEC (101-148)
[2018-07-27] MEDS ORDERED: COL100C PO (08:37)
[2018-07-27] MEDS ORDERED: LOSA25TA96 PO (08:37)
[2018-07-27] MEDS ORDERED: ASPI-1071 PO (08:37)
[2018-07-27] MEDS ORDERED: HYDR-3972 PO (08:37)
[2018-07-27] MEDS: losartan 25mg tablet PO SCH (09:11)
[2018-07-27 11:00] VITALS: BP 131/66
[2018-07-27 15:00] VITALS: BP 116/55
--- NOTE | 2018-07-27 18:32 | NUR ---
Problems reprioritized. Patient report given, questions answered & plan of care reviewed with Lakhwinder MUNGUIA.
--- NOTE | 2018-07-27 18:42 | NUR ---
Patient is remembering to use sternal precautions more than he was yesterday. IS is able to state indications and understands the importance of maintaining them. patient is walking more frequently and states he plans and is ready to discharge tomorrow pending MD approval.
[2018-07-27 19:00] VITALS: BP 111/51
[2018-07-27] MEDS: HYDROcodone/acetaminophen 10/325mg tab PO PRN (20:37)
[2018-07-27] MEDS: diphenhydrAMINE 25mg capsule PO SCH (20:38)
[2018-07-27] MEDS: insulin glargine (Lantus) pen - multi-dose SQ SCH (21:22)
[2018-07-27 23:00] VITALS: BP 108/62
[2018-07-28 03:00] VITALS: BP 130/66
[2018-07-28 06:00] VITALS: BP 126/66
--- NOTE | 2018-07-28 06:00 | NUR ---
Patient in room MED 316. I have received report from NILDA Keane and had the opportunity to ask questions and assume patient care.
[2018-07-28 06:09] LABS: MAGNESIUM 2.5 MG/DL (1.5-2.4); PHOSPHORUS 3.2 MG/DL (2.3-4.5); POTASSIUM 3.4 MMOL/L (3.5-5.1)
--- NOTE | 2018-07-28 06:31 | NUR ---
pT REPORT GIVEN TO Elizabeth MUNGUIA
[2018-07-28] MEDS: pantoprazole 40mg Tablet.DR PO SCH (07:49)
[2018-07-28] MEDS: docusate sod 100mg capsule PO SCH (07:49)
[2018-07-28] MEDS: losartan 25mg tablet PO SCH (07:50)
[2018-07-28] MEDS: aspirin 81mg tablet.DR PO SCH (07:50)
[2018-07-28] MEDS: HYDROchlorothiazide 25mg tablet PO SCH (07:50)
[2018-07-28] MEDS ORDERED: potassium Cl 20 mEq SR tablet PO PRN ×2 (07:50)
[2018-07-28] MEDS ORDERED: potassium Cl 40MEQ/NS 500ml 500 ML IV PRN ×2 (07:50)
[2018-07-28] MEDS: atenolol 25mg tablet PO SCH (07:51)
[2018-07-28] MEDS: atorvastatin 10mg tablet PO SCH (07:51)
[2018-07-28] MEDS: finasteride 5mg tablet PO SCH (07:52)
[2018-07-28] MEDS: lactose-reduced food (Ensure High Protein) 237ml bottle PO SCH (07:53)
[2018-07-28 11:00] VITALS: BP 137/73
--- NOTE | 2018-07-28 11:30 | NUR ---
Provided patient with discharge instructions as well as new medication information and directions. Patient aware his prescriptions were faxed to [facility] to be picked up tomorrow when it opens. Patient and spouse verbalized understanding of continued sternal precautions and have demonstrated efficiency in transferring patient safely from bed to bathroom and chair, etc independently. Patient to call for appointment with Dr. Zhong as directed in discharge instruction packet. IV removed, catheter intact, with minimal bleeding clean gauze applied and secured with coban. Tele monitor removed and returned to telecommunications project manager. patient and family denied any further questions or concerns. Patient accompanied down @ 1215 via wheelchair with PCT to go home with family via private vehicle. All belongings left with patient.
[2018-07-28] MEDS: HYDROcodone/acetaminophen 10/325mg tab PO PRN (11:38)
== END 2018-07-28 12:15 | disposition home health service (06) | DRG 236 ==
LOC: PAS IN 05:17 → EDSTATUS 07:30 → CICU 2S 11:49 → MED 3N 07-25 16:45
PROVIDERS: ADMIT Thoracic Surgery (Cardiothoracic Vascular Surgery); ATTEND Thoracic Surgery (Cardiothoracic Vascular Surgery)
PROC: 021209W Bypass Coronary Artery, Three Arteries from Aorta with Autologous Venous Tissue, Open Approach (ICD-10-PCS; 2018-07-23)
PROC: 06BP4ZZ Excision of Right Saphenous Vein, Percutaneous Endoscopic Approach (ICD-10-PCS; 2018-07-23)
PROC: 5A1221Z Performance of Cardiac Output, Continuous (ICD-10-PCS; 2018-07-23)
PROC: B24BZZ4 Ultrasonography of Heart with Aorta, Transesophageal (ICD-10-PCS; 2018-07-23)
PROC: 02HQ32Z Insertion of Monitoring Device into Right Pulmonary Artery, Percutaneous Approach (ICD-10-PCS; 2018-07-23)
PROC: 02HV33Z Insertion of Infusion Device into Superior Vena Cava, Percutaneous Approach (ICD-10-PCS; 2018-07-23)
PROC: B548ZZA Ultrasonography of Superior Vena Cava, Guidance (ICD-10-PCS; 2018-07-23)
PROC: 02100Z9 Bypass Coronary Artery, One Artery from Left Internal Mammary, Open Approach (ICD-10-PCS; principal; 2018-07-23 06:54)
DX: I25.10 Atherosclerotic heart disease of native coronary artery without angina pectoris (principal); I31.9 Disease of pericardium, unspecified; I10 Essential (primary) hypertension; E11.9 Type 2 diabetes mellitus without complications; E66.9 Obesity, unspecified; E04.1 Nontoxic single thyroid nodule; G89.29 Other chronic pain; N40.0 Benign prostatic hyperplasia without lower urinary tract symptoms; M47.9 Spondylosis, unspecified; M54.5 Low back pain; Z88.2 Allergy status to sulfonamides; Z79.84 Long term (current) use of oral hypoglycemic drugs; Z79.899 Other long term (current) drug therapy; Z79.82 Long term (current) use of aspirin; Z68.30 Body mass index [BMI] 30.0-30.9, adult
CPT/HCPCS: 0232T; 93312; 93325; 36415; 36600; 71045; 71046; 80048; 80053; 81001; 82330; 82435; 82803; 82947; 82948; 83036; 83735; 84100; 84132; 84295; 85018; 85025; 85347; 85384; 85610; 85730; 86885; 86900; 86901; 86920; 87070; 93005; 93880; 93971; 94002; 94003; 94010; 94667; 94668; 94760; 97116; 97162; 97530; A6255; A6258; A6402; A6446; A6449; A7000; A7048; C1751; C9113; G0378; J0690; J1644; J1815; J1940; J2001; J2060; J2150; J2250; J2270; J2370; J2440; J2704; J2930; J3010; J3370; J3475; J3480; J3490; J7030; J7060; J7120; P9045; P9047; Q0163

== ENCOUNTER 2018-08-02 15:40 | Inpatient (IN) | payer MEDICARE, BC ==
[~2018-08-02] VITALS: Ht 190.5 cm; Wt 108.6 kg
[~2018-08-02 15:40] MED LIST changes: -AMLO-317 PO; +ASPI-1071 PO; +COL100C PO; +HYDR-3972 PO; +LOSA25TA96 PO; -LOSA50TA64 PO; +pneumococcal 23-VAL P-sac vacc 25 mcg/0.5ml vial IMVAC ONE; -ringers solution, lacted 1,000 ML IV SCH
--- NOTE | 2018-08-02 15:49 | NUR ---
EKG 1546
--- NOTE | 2018-08-02 16:04 | NUR ---
PT CAN'T PROVIDE UA AT THIS TIME. HE DID ATTEMPT
[2018-08-02] MEDS ORDERED: normal saline 1000ML IV soln IVB ONE (16:15)
[2018-08-02] MEDS ORDERED: glycopyrrolate 0.2mg/ml inj IV ONE (16:15)
[2018-08-02] MEDS ORDERED: loperamide 2mg capsule PO ONE (16:15)
[2018-08-02 16:28] LABS: BASOPHILS # (AUTO) 0.1 X10'3 (0-0.2); BASOPHILS % (AUTO) 0.6 % (0-1); EOSINOPHILS # (AUTO) 0.1 X10'3 (0-0.9); EOSINOPHILS % (AUTO) 1.2 % (0-6); HEMATOCRIT 37.8 % (42.0-52.0); HEMOGLOBIN 12.4 g/dl (14.0-17.9); LYMPHOCYTES # (AUTO) 0.6 X10'3 (1.1-4.8); LYMPHOCYTES % (AUTO) 5.4 % (21-51); MEAN CORPUSCULAR HEMOGLOBIN 31.7 PG (27.0-31.0); MEAN CORPUSCULAR HGB CONC 32.9 % (33.0-36.5); MEAN CORPUSCULAR VOLUME 96.4 FL (78-98); MONOCYTES # (AUTO) 0.6 X10'3 (0-0.9); MONOCYTES % (AUTO) 5.2 % (2-12); NEUTROPHILS # (AUTO) 9.5 X10'3 (1.8-7.7); NEUTROPHILS % (AUTO) 87.6 % (42-75); PLATELET COUNT 299 X10'3 (140-440); RED BLOOD COUNT 3.92 X10'6 (4.70-6.10); RED CELL DISTRIBUTION WIDTH 13.8 % (11.5-14.5); WHITE BLOOD COUNT 10.8 X10'3 (4.5-11.0)
--- NOTE | 2018-08-02 16:28 | NUR ---
PT STILL CAN'T PROVIDE UA - IV FLUID INFUSING AND 2 LITERS ORDERED. BSC COMMODE IN ROOM AND PT ALSO INSTRUCTED ON COLLECTING STOOL SAMPLE.
[2018-08-02 16:40] LABS: PARTIAL THROMBOPLASTIN TIME 26 SECONDS (22-32); PROTHROMBIN TIME 9.8 SECONDS (9.0-12.0)
[2018-08-02 16:53] LABS: ALANINE AMINOTRANSFERASE 46 U/L (12-78); ALBUMIN 2.8 G/DL (3.4-5.0); ALBUMIN/GLOBULIN RATIO 0.7 (1.1-1.5); ALKALINE PHOSPHATASE 93 IU/L (46-116); ANION GAP 11 (8-16); ASPARTATE AMINO TRANSFERASE 30 U/L (10-37); BILIRUBIN,TOTAL 0.4 MG/DL (0.1-1.0); BLOOD UREA NITROGEN 21 MG/DL (7-18); CALCIUM 9.2 MG/DL (8.5-10.1); CHLORIDE 97 MMOL/L (99-107); GLUCOSE 74 MG/DL (70-104); SODIUM 139 MMOL/L (135-145); TOTAL CARBON DIOXIDE 30.7 MMOL/L (24-32); TOTAL PROTEIN 6.9 G/DL (6.4-8.2); TROPONIN I 0.05 NG/ML (0.0-0.05); eGFR 50 ML/MIN
[2018-08-02 16:54] LABS: POTASSIUM 2.5 MMOL/L (3.5-5.1)
[2018-08-02] MEDS ORDERED: potassium Cl 20 mEq SR tablet PO ONE (17:10)
[2018-08-02] MEDS: potassium 10mEq/100ml NS w/LIDOcaine (10mg/bag) IV SCH ×2 (17:22→18:57)
--- NOTE | 2018-08-02 17:23 | NUR ---
PT ONCE AGAIN TRIED FOR UA, NOT SUCCESSFULL AT THIS TIME. - K REPLACEMENT STARTED AND INFUSING AT THIS TIME. REMAINS AT BEDSIDE.
--- NOTE | 2018-08-02 17:45 | NUR ---
PT RESTING COMFORTABLY, NO DISTRESS NOTED. NO SEIZURE ACTIVITY SINCE ARRIVAL.
[2018-08-02 17:47] LABS: CLARITY,URINE CLEAR (Clear); COLOR,URINE STRAW (Yellow); GLUCOSE, URINE NEGATIVE (Neg); KETONES,URINE NEGATIVE (Neg); LEUKOCYTE ESTERASE ,URINE NEGATIVE (Neg); NITRITES, URINE NEGATIVE (Neg); OCCULT BLOOD,URINE TRACE-LYSED (Neg); PH,URINE 5.5 (4.8-8.0); PROTEIN,URINE 100 mg/dl (Neg); UROBILINOGEN,URINE 0.2 E.U/dL (0.2-1.0)
[2018-08-02 17:52] LABS: UA COLLECTION TYPE CLN CATCH MIDSTREAM
[2018-08-02] MEDS ORDERED: dexamethasone sod phosphate 10mg/ml inj IV STA (17:52)
[2018-08-02] MEDS ORDERED: dextrose 50%-water 50ml dispensing syringe IV ONE (17:55)
--- NOTE | 2018-08-02 17:56 | NUR ---
RECHECKED PTS BG - CAME BACK AT 32 - GAVE 1AMP MD Monroe AWARE. WILL RECHECK SUGAR IN 5MINS
[2018-08-02 18:00] LABS: BACTERIA,URINE NONE SEEN /HPF (Neg); RBC,URINE 0-2 /HPF (0-2); SQUAMOUS EPITHELIAL CELL,UR FEW /LPF (FEW); WBC,URINE NONE SEEN /HPF (0-4)
--- NOTE | 2018-08-02 18:07 | NUR ---
PT HAVING EPISODES OF BRADYCARDIA INTO THE LOW 40'S - HE IS ASYMPTOMATIC AT THIS TIME. MD AWARE, WILL CONTINUE TO MONITOR.
[2018-08-02] MEDS ORDERED: ASPI81TA52 PO (18:48)
[2018-08-02] MEDS ORDERED: HYDR-4353 PO (18:49)
[2018-08-02] MEDS ORDERED: LOSA25TA96 PO (18:50)
[2018-08-02 19:41] LABS: PHOSPHORUS 3.7 MG/DL (2.3-4.5)
[2018-08-02] MEDS ORDERED: dextrose 5%-1/2 normal saline 1,000 ML IV SCH (19:48)
[2018-08-02] MEDS ORDERED: HYDROcodone/acetaminophen 5mg/325mg tablet PO PRN (19:50)
[2018-08-02] MEDS ORDERED: magnesium hydroxide 30ml (MOM) UD suspension PO PRN (19:50)
[2018-08-02] MEDS ORDERED: acetaminophen 325mg tablet PO PRN ×2 (19:50→20:10)
[2018-08-02] MEDS ORDERED: mag hydrox/Alum hydrox/simeth 30ml oral suspension PO PRN (19:50)
[2018-08-02] MEDS ORDERED: dextrose ORAL solution 15 GM/59 ML bottle PO PRN ×2 (19:55)
[2018-08-02] MEDS ORDERED: MESSAGE TO PHARMACY PO ONE (19:55)
[2018-08-02] MEDS ORDERED: glucagon, human recombinant 1mg kit SUBCUT PRN (19:55)
[2018-08-02] MEDS ORDERED: dextrose 50%-water 50ml dispensing syringe IV PRN ×2 (19:55)
[2018-08-02] MEDS ORDERED: atorvastatin 20mg tablet PO SCH (21:00)
--- NOTE | 2018-08-02 21:30 | NUR ---
Pt arrived on floor by torey from ER after receiving report from Guru MUNGUIA, pt was able to ambulate to bed with minimal assistance, vitals taken, oriented to unit, no c/p of pain, pt stable, will continue to monitor
[2018-08-02 22:00] VITALS: BP 162/69
[2018-08-02] MEDS: calcium carbonate/vitamin D3 tablet PO SCH (23:21)
[2018-08-02] MEDS: atenolol 50mg tablet PO SCH (23:24)
[2018-08-02] MEDS ORDERED: diphenhydrAMINE 25mg capsule PO PRN (23:25)
[2018-08-02] MEDS: heparin, porcine 5000 units/ml vial SQ SCH (23:25)
[2018-08-03 03:00] VITALS: BP 133/61
--- NOTE | 2018-08-03 03:16 | NUR ---
pt blood pressure 179/85, notified Lea NAILS, recieved order to give 6.25 Coreg AM now Addendum: 08/03/18 at 0503 by Gypsy Goodwin RN Disregard incorrect pt
[2018-08-03 05:26] LABS: BASOPHILS % (AUTO) 0 % (0-1); EOSINOPHILS # (AUTO) 0.1 X10'3 (0-0.9); EOSINOPHILS % (AUTO) 1.6 % (0-6); HEMATOCRIT 34.5 % (42.0-52.0); HEMOGLOBIN 11.4 g/dl (14.0-17.9); LYMPHOCYTES # (AUTO) 0.5 X10'3 (1.1-4.8); LYMPHOCYTES % (AUTO) 5.3 % (21-51); MEAN CORPUSCULAR HEMOGLOBIN 31.5 PG (27.0-31.0); MEAN CORPUSCULAR VOLUME 95.4 FL (78-98); MEAN PLATELET VOLUME 8.3 FL (7.4-10.4); MONOCYTES # (AUTO) 0.4 X10'3 (0-0.9); MONOCYTES % (AUTO) 5.1 % (2-12); NEUTROPHILS # (AUTO) 7.8 X10'3 (1.8-7.7); PLATELET COUNT 263 X10'3 (140-440); RED BLOOD COUNT 3.62 X10'6 (4.70-6.10); RED CELL DISTRIBUTION WIDTH 13.7 % (11.5-14.5); WHITE BLOOD COUNT 8.8 X10'3 (4.5-11.0)
[2018-08-03 05:31] LABS: ALANINE AMINOTRANSFERASE 36 U/L (12-78); ALBUMIN 2.5 G/DL (3.4-5.0); ALBUMIN/GLOBULIN RATIO 0.7 (1.1-1.5); ALKALINE PHOSPHATASE 81 IU/L (46-116); ANION GAP 7 (8-16); ASPARTATE AMINO TRANSFERASE 22 U/L (10-37); BILIRUBIN,TOTAL 0.4 MG/DL (0.1-1.0); BLOOD UREA NITROGEN 16 MG/DL (7-18); BUN/CREATININE RATIO 12.9 (5.4-32.0); CALCIUM 9.2 MG/DL (8.5-10.1); CHLORIDE 103 MMOL/L (99-107); CREATININE 1.24 MG/DL (0.60-1.10); GLUCOSE 190 MG/DL (70-104); POTASSIUM 3.6 MMOL/L (3.5-5.1); SODIUM 141 MMOL/L (135-145); TOTAL CARBON DIOXIDE 30.8 MMOL/L (24-32); TOTAL PROTEIN 6.1 G/DL (6.4-8.2); eGFR 57 ML/MIN
[2018-08-03 06:00] VITALS: BP 166/79
--- NOTE | 2018-08-03 06:17 | NUR ---
Problems reprioritized. Patient report given, questions answered & plan of care reviewed with Sabra MUNGUIA.
--- NOTE | 2018-08-03 06:19 | NUR ---
Student Medication Administration: For this medication-pass time frame, all medication were reviewed, dispensed, administered and documented per hospital policy by Gypsy MUNGUIA. Addendum: 08/03/18 at 0620 by Jhoana Whitley RN [facility] Medication administration
--- NOTE | 2018-08-03 06:19 | NUR ---
[place] documentation: I have reviewed and agree with all interventions, assessments performed and documented by Gypsy MUNGUIA.
--- NOTE | 2018-08-03 06:30 | NUR ---
Patient in room PCU 3009. I have received report from Jhoana MUNGUIA and had the opportunity to ask questions and assume patient care. Patient resting comfortably in bed. In no acute distress. Will continue to monitor.
[2018-08-03] MEDS: calcium carbonate/vitamin D3 tablet PO SCH ×2 (07:42→19:31)
[2018-08-03] MEDS: heparin, porcine 5000 units/ml vial SQ SCH ×2 (07:43→19:32)
[2018-08-03] MEDS: atenolol 50mg tablet PO SCH ×2 (07:43→19:31)
[2018-08-03] MEDS ORDERED: finasteride 5mg tablet PO SCH (08:00)
[2018-08-03] MEDS ORDERED: aspirin 81mg tablet.DR PO SCH (08:00)
[2018-08-03] MEDS ORDERED: losartan 25mg tablet PO SCH (08:00)
[2018-08-03] MEDS ORDERED: non-formulary drug (Acetaminophen (Tylenol Extra Strength) 2 TABLET) PO SCH (08:00)
[2018-08-03] MEDS ORDERED: pneumococcal 23-VAL P-sac vacc 25 mcg/0.5ml vial IMVAC ONE (10:00)
--- NOTE | 2018-08-03 10:00 | NUR ---
Patient has met hyperglycemic protocol. HS blood glucose 179. AM glucose 186. Did not administer humalog as pharmacy did not have it available and timing would be too close to lunch time nutritional coverage. Will continue to monitor.
--- NOTE | 2018-08-03 10:02 | NUR ---
Paged Dr. Hester PAGER ID: [phone] MESSAGE: Sabra Gaurav [phone] RE: Omar Clarke [phone]. Patient has AC/HS accuchecks and met protocol for hyperglycemia. Last glucose 179/186. No Humalog ordered for patient. Please advise.
[2018-08-03] MEDS ORDERED: insulin Lispro (HumaLOG) vial - multi-dose SQ SCH (10:10)
[2018-08-03 11:00] VITALS: BP 130/70
--- NOTE | 2018-08-03 15:30 | NUR ---
Patient in room MED 315. I have received report from NILDA Montaño and had the opportunity to ask questions and assume patient care.
[2018-08-03] MEDS ORDERED: magnesium 2GM in 50ml NS 50 ML IV PRN (15:35)
[2018-08-03] MEDS ORDERED: magnesium 4gm in 100ml NS 100 ML IV PRN (15:35)
[2018-08-03] MEDS ORDERED: magnesium Cl slow-release 64mg tablet PO PRN (15:35)
[2018-08-03] MEDS ORDERED: potassium Cl 40MEQ/NS 500ml 500 ML IV PRN ×2 (15:35)
[2018-08-03] MEDS ORDERED: potassium Cl 20 mEq SR tablet PO PRN (15:35)
--- NOTE | 2018-08-03 15:35 | NUR ---
Problems reprioritized. Patient report given, questions answered & plan of care reviewed with Jailene MUNGUIA. Patient transferred to ACCE Unit.
--- NOTE | 2018-08-03 15:45 | NUR ---
Patient in room MED 315. I have received report from NILDA Montaño and had the opportunity to ask questions and assume patient care. Addendum: 08/03/18 at 1721 by Jailene Khan RN The patient arrived to the floor at this time. Patient is alert and oriented. He came by W/c and in stable condition with his belongings in a leather bag.
[2018-08-03] MEDS: potassium Cl 20 mEq SR tablet PO PRN ×2 (15:49→19:31)
[2018-08-03 16:00] VITALS: BP 118/73
[2018-08-03 16:01] LABS: MAGNESIUM 1.8 MG/DL (1.5-2.4)
--- NOTE | 2018-08-03 17:33 | NUR ---
Received patient late in the shift and completed Physical assessment. Agree with Tele-nurse assessment except for minor changes, note edits in edited assessment. Will continue to monitor patient for duration of shift.
--- NOTE | 2018-08-03 17:49 | NUR ---
[facility] documentation: I have reviewed and agree with all interventions, assessments performed and documented by Jailene MUNGUIA.
--- NOTE | 2018-08-03 18:04 | NUR ---
Problems reprioritized. Patient report given, questions answered & plan of care reviewed with Lakhwinder MUNGUIA.
[2018-08-03 19:31] VITALS: BP_SYST 80
--- NOTE | 2018-08-03 19:45 | NUR ---
Patient dc'd home in the care of his . Patient alert and oriented with no apparent signs of distress. Provided patient with a home glucose monitor so he would be able to check his blood sugars at least twice a day per MD recommendation because he stated he did not have any test strips for his current meter and wouldn't be able to do testing until he sees his MD and then it would take a couple days to order in the strips. at bedside at time of d/c and reviewed instructions with them both. Patient and both verbalized understanding and stated they would call to get in and see primary first thing tomorrow morning. Primary RN d/c'd IV and tele monitor and patient was wheeled down to lobby by [facility].
[2018-08-03] MEDS ORDERED: insulin glargine (Lantus) pen - multi-dose SQ SCH (21:00)
== END 2018-08-03 19:45 | disposition home health service (06) | DRG 639 ==
LOC: ER 15:41 → ED HOLD 19:48 → PCU 3S 21:30 → MED 3N 08-03 15:51
PROVIDERS: ADMIT Internal Medicine; ATTEND Hospitalist
PROC: 3E0234Z Introduction of Serum, Toxoid and Vaccine into Muscle, Percutaneous Approach (ICD-10-PCS; principal; 2018-08-03)
DX: E11.649 Type 2 diabetes mellitus with hypoglycemia without coma (principal); R56.9 Unspecified convulsions; E86.0 Dehydration; I25.10 Atherosclerotic heart disease of native coronary artery without angina pectoris; R19.7 Diarrhea, unspecified; Z95.1 Presence of aortocoronary bypass graft; Z23 Encounter for immunization; Z88.2 Allergy status to sulfonamides; Z79.899 Other long term (current) drug therapy; Z79.84 Long term (current) use of oral hypoglycemic drugs; Z79.82 Long term (current) use of aspirin
CPT/HCPCS: 36415; 71045; 80053; 81001; 82948; 83036; 83605; 83735; 83880; 84100; 84145; 84484; 85025; 85610; 85730; 87040; 87045; 87046; 87070; 90732; 93005; 96361; 96374; 96375; 99285; G0378; J1100; J1644; J1815; J3480; J3490; Q0163

== ENCOUNTER 2020-07-12 09:11 | Day surgery (SDC) | payer MEDICARE, OTHER ==
[2020-07-11 14:05] LABS: BASOPHILS # (AUTO) 0.1 X10'3 (0-0.2); BASOPHILS % (AUTO) 0.6 % (0-1); EOSINOPHILS # (AUTO) 0.1 X10'3 (0-0.9); EOSINOPHILS % (AUTO) 1.1 % (0-6); HEMATOCRIT 41.4 % (42.0-52.0); LYMPHOCYTES # (AUTO) 1.6 X10'3 (1.1-4.8); LYMPHOCYTES % (AUTO) 17.4 % (21-51); MEAN CORPUSCULAR HGB CONC 33.9 g/dL (33.0-36.5); MEAN CORPUSCULAR VOLUME 97.3 FL (78-98); MEAN PLATELET VOLUME 8.8 FL (7.4-10.4); MONOCYTES # (AUTO) 0.9 X10'3 (0-0.9); NEUTROPHILS # (AUTO) 6.8 X10'3 (1.8-7.7); NEUTROPHILS % (AUTO) 71.9 % (42-75); PLATELET COUNT 237 X10'3 (140-440); RED BLOOD COUNT 4.26 X10'6 (4.70-6.10); RED CELL DISTRIBUTION WIDTH 13.3 % (11.5-14.5); WHITE BLOOD COUNT 9.5 X10'3 (4.5-11.0)
[2020-07-11 14:15] LABS: PARTIAL THROMBOPLASTIN TIME 26 SECONDS (22-32)
[2020-07-11 14:17] LABS: ALANINE AMINOTRANSFERASE 19 U/L (12-78); ALBUMIN 3.5 G/DL (3.4-5.0); ALBUMIN/GLOBULIN RATIO 0.9 (1.1-1.5); ALKALINE PHOSPHATASE 99 IU/L (46-116); ANION GAP 7 (8-16); ASPARTATE AMINO TRANSFERASE 19 U/L (10-37); BILIRUBIN,TOTAL 0.5 MG/DL (0.1-1.0); BLOOD UREA NITROGEN 33 MG/DL (7-18); BUN/CREATININE RATIO 18.2 (5.4-32.0); CALCIUM 9.2 MG/DL (8.5-10.1); CHLORIDE 106 MMOL/L (99-107); CREATININE 1.81 MG/DL (0.60-1.10); GLUCOSE 164 MG/DL (70-104); POTASSIUM 4.1 MMOL/L (3.5-5.1); SODIUM 142 MMOL/L (135-145); TOTAL CARBON DIOXIDE 29.3 MMOL/L (24-32); TOTAL PROTEIN 7.3 G/DL (6.4-8.2); eGFR 37 ML/MIN
[2020-07-12] VITALS (9 sets, daily range): BP systolic 131–164; BP diastolic 66–78
[~2020-07-12] VITALS: Ht 190.5 cm; Wt 114.1 kg
[~2020-07-12 09:11] MED LIST changes: -ASPI-1071 PO; +ASPI81TA52 PO; -COL100C PO; -GLIM1TAB46 PO; -HYDR-3972 PO; +HYDR-4353 PO; -HYDR25TA4 PO; -pneumococcal 23-VAL P-sac vacc 25 mcg/0.5ml vial IMVAC ONE
[2020-07-12] MEDS ORDERED: insulin Lispro (HumaLOG) vial - multi-dose SQ SCH (09:40)
[2020-07-12] MEDS ORDERED: dextrose 50%-water 50ml dispensing syringe IV PRN ×2 (09:40)
[2020-07-12] MEDS ORDERED: dextrose ORAL solution 15 GM/59 ML bottle PO PRN ×2 (09:40)
[2020-07-12] MEDS ORDERED: diphenhydrAMINE 25mg capsule PO PRN (09:40)
[2020-07-12] MEDS ORDERED: normal saline 1,000 ML IV SCH (09:40)
[2020-07-12] MEDS ORDERED: LORazepam 0.5 MG tablet PO PRN (09:40)
[2020-07-12] MEDS ORDERED: glucagon, human recombinant 1mg kit SUBCUT PRN (09:40)
[2020-07-12] MEDS ORDERED: MESSAGE TO PHARMACY PO ONE (09:40)
[2020-07-12] MEDS ORDERED: nitroGLYCERIN 0.4mg SUBLingual tab SL PRN (09:40)
[2020-07-12] MEDS ORDERED: DOCU-21 PO (09:48)
[2020-07-12] MEDS ORDERED: OMEG-79 PO (09:48)
[2020-07-12] MEDS ORDERED: AMLO2.5T2 PO (09:48)
[2020-07-12] MEDS ORDERED: AMA1T PO (09:48)
[2020-07-12] MEDS ORDERED: LEVO175T37 PO (09:48)
[2020-07-12] MEDS ORDERED: fentaNYL/PF 50MCG/1 ML 2ML syringe ONE (10:36)
[2020-07-12] MEDS ORDERED: iohexol 350 MG/ML 50ML vial IV ONE ×2 (10:36→11:10)
[2020-07-12] MEDS ORDERED: iohexol 350MG/ML 100ml bottle IV ONE (10:36)
[2020-07-12] MEDS ORDERED: midazolam 2 mg/2 ml injection ONE (10:36)
[2020-07-12] MEDS ORDERED: heparin 1,000 UNITS/NS 500ml 500 ML ONE ×2 (10:36)
[2020-07-12] MEDS ORDERED: LIDOcaine 1% (10mg/ml)w/preservative injection 20ml MDV ONE (10:36)
[2020-07-12] MEDS ORDERED: acetaminophen 325mg tablet PO PRN (12:25)
[2020-07-12] MEDS ORDERED: HYDROcodone/acetaminophen 5mg/325mg tablet PO PRN (12:25)
[2020-07-12] MEDS ORDERED: OXAZEpam 15mg capsule PO PRN (12:25)
[2020-07-12] MEDS ORDERED: HYDROcodone/acetaminophen 10/325mg tab PO PRN (12:25)
[2020-07-12] MEDS ORDERED: ondansetron/PF 4mg/2ml inj IV PRN (12:25)
[2020-07-12] MEDS ORDERED: proCHLORperazine 10 MG/2 ml inj IV PRN (12:25)
--- NOTE | 2020-07-12 14:12 | NUR ---
pt voided 250ml clear yellow
--- NOTE | 2020-07-12 15:10 | NUR ---
Patient in room, resting comfortably in bed. Site stable, DRSG CD&I, no s/s of bleeding or infection. I assumed patient care.
--- NOTE | 2020-07-12 16:10 | NUR ---
Pt voided 150 ml yellow, clear
--- NOTE | 2020-07-12 17:30 | NUR ---
Marie RN discharging pt at bedside.
[2020-07-12] MEDS ORDERED: insulin glargine (Lantus) pen - multi-dose SQ SCH (21:00)
== END 2020-07-12 17:55 | disposition home or self-care (01) ==
LOC: SSTAY O 09:11
PROVIDERS: ATTEND Internal Medicine Cardiovascular Disease
DX: R94.39 Abnormal result of other cardiovascular function study (principal); I25.810 Atherosclerosis of coronary artery bypass graft(s) without angina pectoris; I25.82 Chronic total occlusion of coronary artery; G47.33 Obstructive sleep apnea (adult) (pediatric); M54.30 Sciatica, unspecified side; I25.2 Old myocardial infarction; E11.22 Type 2 diabetes mellitus with diabetic chronic kidney disease; I12.9 Hypertensive chronic kidney disease with stage 1 through stage 4 chronic kidney disease, or unspecified chronic kidney disease; I34.1 Nonrheumatic mitral (valve) prolapse; N18.9 Chronic kidney disease, unspecified; E78.5 Hyperlipidemia, unspecified; N40.0 Benign prostatic hyperplasia without lower urinary tract symptoms; E66.9 Obesity, unspecified; Z68.31 Body mass index [BMI] 31.0-31.9, adult; Z95.1 Presence of aortocoronary bypass graft; Z88.8 Allergy status to other drugs, medicaments and biological substances; Z88.2 Allergy status to sulfonamides
CPT/HCPCS: 36415; 71046; 80053; 85025; 85610; 85730; 93459; 99152; 99153; C1760; C1769; J1644; J1815; J2001; J2250; J3010; Q9967; A4620; A6258